=== PATIENT | female | born 1970 | race Two or more races ===

== ENCOUNTER 2017-06-19 14:08 | Emergency (ER) | payer BC ==
[~2017-06-19] VITALS: Ht 165.1 cm; Wt 72.6 kg
[2017-06-19 14:08] VITALS: BP 128/70
[2017-06-19] MEDS ORDERED: LORazepam 1mg tab ONE (14:11)
[2017-06-19] MEDS ORDERED: LEVETIRACETAM750 MG ORAL (14:12)
[2017-06-19] MEDS ORDERED: ZANTAC300 MG ORAL (14:14)
[2017-06-19] MEDS ORDERED: ZANTAC 7575 MG ORAL (14:14)
[2017-06-19] MEDS ORDERED: LORazepam Inj 2mg/ml 1ml IV ONE ×2 (14:15→22:30)
[2017-06-19] MEDS ORDERED: DIVALPROEX SOD500 MG PO (14:15)
[2017-06-19] MEDS ORDERED: ABILIFY10 MG ORAL (14:17)
[2017-06-19] MEDS ORDERED: METHOCARBAMOL500 M1 PO (14:19)
--- NOTE | 2017-06-19 14:19 | Emergency Room Report ---
History of Present Illness General Chief Complaint: Seizure Source: EMS Present Illness HPI Patient is a 47-year-old female who presented after a witnessed seizure. Patient known history of seizure disorder. Patient was sent in from doctor's office. The patient had a seizure activity lasting approximately 30 minutes. Patient had been given Versed approximately 10 minutes prior to arrival with initial resolution of seizure. The seizure seizure had recurred afterward.Seizure was tonic-clonic in nature Allergies: Coded Allergies: No Known Allergies (Unverified , 06/19/17) Patient History Past Medical History: see triage record Reviewed Nursing Documentation: PMH: Agreed, PSxH: Agreed Nursing Documentation-PM Past Medical History: No History, Except For Hx Seizures: Yes Review of Systems All Other Systems: negative except mentioned in HPI Physical Exam Vital Signs Date Time Temp Pulse Resp B/P (MAP) Pulse Ox O2 Delivery O2 Flow Rate FiO2 06/19/17 14:03 86 14 128/70 99 Room Air Sp02 EP Interpretation: reviewed, normal General Appearance: normal inspection, other - poor alertness Head: atraumatic ENT: normal ENT inspection, hearing grossly normal, normal voice Neck: normal inspection, full range of motion, supple, no bony tend Respiratory: normal inspection, lungs clear, normal breath sounds, no respiratory distress, no retraction, no wheezing Cardiovascular #1: regular rate, rhythm, no edema Gastrointestinal: normal inspection, normal bowel sounds, non tender, soft, no guarding, no hernia Genitourinary: no CVA tenderness Musculoskeletal: normal inspection, back normal, normal range of motion Neurologic: normal inspection, motor weakness Skin: normal inspection, normal color, no rash Medical Decision Making Diagnostic Impression: Primary Impression: Seizure disorder Additional Impression: Recurrent seizures ER Course Presented for seizure. Differential diagnosis included cysticercosis, electrolyte abnormality, mass lesion, or cranial hemorrhage. Patient has no history of seizure disorder. Patient had a witnessed episode in emergency department. Motor activity appear to have a coordinated movements involving both upper extremities. This may be a pseudoseizure however patient was given IV Ativan 2 mg.The patient was noted to have The patient's presented additional history stating the patient had prior history of pseudoseizures. 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 Patient was observed in the emergency department was noted to be more awake and alert. Patient was discussed with Dr. Torres who agreed to accept the patient in transfer Labs Test 06/19/17 14:40 White Blood Count 9.8 K/UL (4.8-10.8) Red Blood Count 4.35 M/UL (4.20-5.40) Hemoglobin 14.7 G/DL (12.0-16.0) Hematocrit 45.5 % (37.0-47.0) Mean Corpuscular Volume 105 FL (80-99) Mean Corpuscular Hemoglobin 33.9 PG (27.0-31.0) Mean Corpuscular Hemoglobin Concent 32.4 G/DL (32.0-36.0) Red Cell Distribution Width 13.0 % (11.6-14.8) Platelet Count 354 K/UL (150-450) Mean Platelet Volume 5.1 FL (6.5-10.1) Neutrophils (%) (Auto) 46.2 % (45.0-75.0) Lymphocytes (%) (Auto) 43.7 % (20.0-45.0) Monocytes (%) (Auto) 7.7 % (1.0-10.0) Eosinophils (%) (Auto) 0.9 % (0.0-3.0) Basophils (%) (Auto) 1.4 % (0.0-2.0) Sodium Level 137 mEQ/L (135-145) Potassium Level 4.0 mEQ/L (3.4-4.9) Chloride Level 102 mEQ/L (98-107) Carbon Dioxide Level 20 mEQ/L (20-30) Anion Gap 15 (5-15) Blood Urea Nitrogen 12 mg/dL (7-23) Creatinine 1.0 mg/dL (0.5-0.9) Estimat Glomerular Filtration Rate 58.9 mL/min (>60) Glucose Level 80 mg/dL (74-106) Calcium Level 8.5 mg/dL (8.6-10.2) Total Bilirubin < 0.2 mg/dL (0.0-1.2) Aspartate Amino Transf (AST/SGOT) 22 U/L (5-40) Alanine Aminotransferase (ALT/SGPT) 20 U/L (3-33) Alkaline Phosphatase 69 U/L (35-104) Troponin I < 0.30 ng/mL (<=0.30) Total Protein 6.9 g/dL (6.6-8.7) Albumin 3.8 g/dL (3.5-5.2) Globulin 3.1 g/dL Albumin/Globulin Ratio 1.2 (1.0-2.7) Phenytoin (Dilantin) Level 1.0 ug/mL (10-20) Valproic Acid (Depakene) Level 63 ug/mL (50-100) Last Vital Signs Date Time Temp Pulse Resp B/P (MAP) Pulse Ox O2 Delivery O2 Flow Rate FiO2 06/19/17 14:03 86 14 128/70 99 Room Air Status: improved Disposition: XFER SHT-TRM HOSP Condition: Serious Vladimir Briscoe Jun 19, 2017 14:19
[2017-06-19] MEDS ORDERED: LAMOTRIGINE100 M2 PO (14:25)
[2017-06-19] MEDS ORDERED: LORAZEPAM0.5 GM MC (14:25)
[2017-06-19] MEDS ORDERED: TRAZODONE HCL150 MG ORAL (14:25)
[2017-06-19] MEDS ORDERED: INDERAL10 MG GT (14:25)
[2017-06-19] MEDS ORDERED: TOPIRAMATE200 MG PO (14:26)
[2017-06-19 14:51] LABS: BASOPHILS % (AUTO) 1.4 % (0.0-2.0); EOSINOPHILS % (AUTO) 0.9 % (0.0-3.0); LYMPHOCYTES % (AUTO) 43.7 % (20.0-45.0); MEAN CORPUSCULAR HEMOGLOBIN 33.9 PG (27.0-31.0); MEAN CORPUSCULAR HGB CONC 32.4 G/DL (32.0-36.0); MEAN CORPUSCULAR VOLUME 105 FL (80-99); MEAN PLATELET VOLUME 5.1 FL (6.5-10.1); MONOCYTES % (AUTO) 7.7 % (1.0-10.0); NEUTROPHILS % (AUTO) 46.2 % (45.0-75.0); PLATELET COUNT 354 K/UL (150-450); RED BLOOD COUNT 4.35 M/UL (4.20-5.40); WHITE BLOOD COUNT 9.8 K/UL (4.8-10.8)
[2017-06-19 15:18] LABS: ALANINE AMINOTRANSFERASE 20 U/L (3-33); ALBUMIN/GLOBULIN RATIO 1.2 (1.0-2.7); ANION GAP 15 (5-15); ASPARTATE AMINO TRANSFERASE 22 U/L (5-40); CALCIUM 8.5 mg/dL (8.6-10.2); CARBON DIOXIDE 20 mEQ/L (20-30); CHLORIDE 102 mEQ/L (98-107); GLOMERULAR FILTRATION RATE 58.9 mL/min (>60); HEMOLYSIS 25; SODIUM 137 mEQ/L (135-145); TOTAL PROTEIN 6.9 g/dL (6.6-8.7); TROPONIN I < 0.30 ng/mL (<=0.30); VALPROIC ACID 63 ug/mL (50-100)
[2017-06-19 15:30] LABS: CARBAMAZEPINE (TEGRETOL) < 2.0 ug/mL (4.0-12.0)
[2017-06-19 16:30] VITALS: BP 131/87
[2017-06-19] MEDS ORDERED: Acetaminophen 500mg (ES) tab ORAL ONE (18:15)
[2017-06-19 18:30] VITALS: BP 120/76
[2017-06-19 20:05] VITALS: BP 145/95
[2017-06-19 22:40] VITALS: BP 130/87
[2017-06-19 22:50] VITALS: BP 130/87
== END 2017-06-19 22:50 | disposition short-term general hospital (02) ==
LOC: EDBD 14:08 → EMR 14:26 → EDBEDREQ 15:25 → EMR 22:50
DX: G40.409 Other generalized epilepsy and epileptic syndromes, not intractable, without status epilepticus (principal)
CPT/HCPCS: 36415; 80053; 80156; 80164; 80185; 84484; 85025; 93005; 96374; 96376; 99285